=== PATIENT | female | born 1980 | race Caucasian/White ===

== ENCOUNTER → 2018-03-15 14:57 | Outpatient (CLI) | payer OTHER, SELFPAY ==
[2018-03-15 15:43] LABS: Influenza A and B by PCR Rapid Negative (Negative)
== END ==
PROVIDERS: PCP Family Medicine; Visit Provider Physician Assistant
DX: R68.89 Other general symptoms and signs (principal)
CPT/HCPCS: 87400

== ENCOUNTER → 2018-08-07 17:47 | Outpatient (CLI) | payer OTHER, SELFPAY ==
[2018-08-07 19:16] LABS: TSH w/ Reflex to FT4 6.52 uIU/mL (0.47-4.68)
[2018-08-07 19:42] LABS: Free T4, Direct Thyroxine 1.14 ng/dL (0.78-2.19)
== END ==
PROVIDERS: PCP Family Medicine; Visit Provider Family Medicine
DX: E03.9 Hypothyroidism, unspecified (principal)
CPT/HCPCS: 36415; 84439; 84443

== ENCOUNTER → 2018-12-18 13:55 | Outpatient (CLI) | payer OTHER, SELFPAY | PROVIDERS: PCP Family Medicine; Visit Provider Family Medicine | DX: E03.9 Hypothyroidism, unspecified (principal) | CPT/HCPCS: 36415; 84439; 84443 ==

== ENCOUNTER → 2019-07-17 07:08 | Outpatient (CLI) | payer OTHER, SELFPAY ==
[2019-07-17 09:51] LABS: Add Manual Diff / Slide Review NO; Basophils Absolute Auto 100 /uL (0-100); Eosinophils Absolute Auto 300 /uL (0-450); Eosinophils Percent Auto 4.8 % (2-4); Hematocrit 35.7 % (36-46); Hemoglobin 12.4 g/dL (12.0-16.0); Lymphocytes Absolute Auto 1700 /uL (1100-4500); Lymphocytes Percent Auto 25.7 % (25-40); Mean Corpuscular HGB Conc 34.7 % (30-36); Mean Corpuscular Hemoglobin 30.1 PG (26-34); Mean Corpuscular Volume 86.9 fL (80-100); Monocytes Absolute Auto 700 /uL (0-900); Monocytes Percent Auto 9.7 % (3-14); Neutrophils Absolute Auto 4000 /uL (1500-7000); Neutrophils Percent Auto 58.8 % (50-75); Platelet Count 231 X10^3/uL (150-400); Red Blood Cell Count 4.11 X10^6/uL (4.0-5.2); White Blood Cell Count 6.8 X10^3/uL (4.5-11.0)
[2019-07-17 09:59] LABS: Alanine Aminotransferase 14 IU/L (<35); Albumin 3.8 g/dL (3.5-5.0); Albumin Globulin Ratio 1.1 (1.0-2.8); Alkaline Phosphatase 55 U/L (38-126); Aspartate Aminotransferase 18 IU/L (14-36); BUN Creatinine Ratio 21.8 (6-22); Bilirubin Total 0.4 mg/dL (0.2-1.3); Blood Urea Nitrogen 17 mg/dL (7-17); Calcium 9.3 mg/dL (8.4-10.2); Carbon Dioxide 23 mmol/L (22-32); Chloride 107 mmol/L (98-107); Estimated Glomerular Filt Rate > 60.0 mL/min (>60); Globulin 3.4 g/dL (1.7-4.1); Glucose 98 mg/dL (70-100); HEMOLYSIS < 15 (0-50); Potassium 4.3 mmol/L (3.4-5.1); Sodium 135 mmol/L (137-145); Total Protein 7.2 g/dL (6.3-8.2)
== END ==
PROVIDERS: PCP Family Medicine; Referring Provider Family Medicine; Visit Provider Family Medicine
DX: Z13.0 Encounter for screening for diseases of the blood and blood-forming organs and certain disorders involving the immune mechanism (principal); Z13.1 Encounter for screening for diabetes mellitus; Z13.220 Encounter for screening for lipoid disorders
CPT/HCPCS: 36415; 80053; 85025

== ENCOUNTER → 2019-11-20 16:29 | Outpatient (CLI) | payer OTHER, SELFPAY ==
--- NOTE | 2019-11-20 16:30 | DI.RAD.S_ITS ---
PROCEDURE: XR SHOULDER RT MIN 2V INDICATIONS: right shoulder pain/injury TECHNIQUE: 3 views of the shoulder were acquired. COMPARISON: None. FINDINGS: Bones: Oblique clavicle fracture, with nondisplaced appearance. Soft tissues: No suspicious soft tissue calcifications. IMPRESSION: Nondisplaced right clavicle fracture Dictated by: Tino Roper M.D. on 11/21/2019 at 9:15 Approved by: Tino Roper M.D. on 11/21/2019 at 9:18
[2019-11-20 18:10] LABS: Thyroid Stimulating Hormone 6.07 uIU/mL (0.47-4.68)
== END ==
PROVIDERS: PCP Family Medicine; Referring Provider Family Medicine; Visit Provider Registered Nurse
DX: S49.91XA Unspecified injury of right shoulder and upper arm, initial encounter (principal); E03.9 Hypothyroidism, unspecified
CPT/HCPCS: 36415; 73030; 84443

== ENCOUNTER → 2020-01-06 16:35 | Outpatient (CLI) | payer OTHER, SELFPAY ==
--- NOTE | 2020-01-06 16:37 | DI.RAD.S_ITS ---
PROCEDURE: XR CERVICAL SPINE 2V OR 3V INDICATIONS: right arm numbness and pain TECHNIQUE: 3 view(s) of the cervical spine were acquired. COMPARISON: None. FINDINGS: Bones: No fractures or dislocations to the T1 level. The lateral masses of C1 appear intact on the odontoid view. No suspicious bony lesions. Minimal disc height reduction is present at C5-6. Soft tissues: No prevertebral soft tissue swelling. IMPRESSION: Minimal degenerative disc disease C5-6, no trauma found. MR scanning may be warranted given symptomatology reported. Dictated by: Ciro Seth M.D. on 01/06/2020 at 17:23 Approved by: Ciro Seth M.D. on 01/06/2020 at 17:23
== END ==
PROVIDERS: PCP Family Medicine; Referring Provider Family Medicine; Visit Provider Family Medicine
DX: M79.601 Pain in right arm (principal); R20.0 Anesthesia of skin
CPT/HCPCS: 72040

== ENCOUNTER → 2020-06-23 11:15 | Outpatient (CLI) | payer OTHER, SELFPAY ==
[2020-06-23 13:12] LABS: COVID19 -Nasal RAPID Negative (Negative)
== END ==
PROVIDERS: PCP Family Medicine; Visit Provider Student in an Organized Health Care Education/Training Program
DX: R05 Cough (principal); R10.9 Unspecified abdominal pain; Z20.822 Contact with and (suspected) exposure to COVID-19
CPT/HCPCS: 87635

== ENCOUNTER 2020-06-25 14:07 | Emergency (ER) | payer OTHER, SELFPAY ==
[2020-06-25] VITALS (14 sets, daily range): BP systolic 130–180; BP diastolic 65–84; PULSE 96–114; RESP 16–33; TEMP 37.4; O2SAT 94–100; BMI 44.3
[2020-06-25] MEDS: SODIUM CHLORIDE 0.9% 1,000 ML 1000 ML IV ×2 (15:34→19:51)
[2020-06-25] MEDS: ONDANSETRON 4 MG/2 ML INJ IV (15:34)
--- NOTE | 2020-06-25 15:52 | DI.RAD.S_ITS ---
PROCEDURE: XR CHEST 1V INDICATIONS: shortness of breath TECHNIQUE: One view of the chest was acquired. COMPARISON: None. FINDINGS: Surgical changes and devices: None. Lungs and pleura: An incomplete inspiratory result is noted, causing a crowded appearance to the lung markings. No focal infiltrates are seen. No pneumothorax or significant pleural effusions are seen. Mediastinum: Mediastinal contours appear normal. Heart size is normal. Bones and chest wall: No suspicious bony lesions. Overlying soft tissues appear unremarkable. IMPRESSION: Limited portable chest examination, without a significant cardiopulmonary abnormality identified. Dictated by: Antony Campos M.D. on 06/25/2020 at 15:13 Approved by: Antony Campos M.D. on 06/25/2020 at 15:14
--- NOTE | 2020-06-25 15:56 | ED.ABDPAIN ---
HPI - Abdominal Pain <Sun Goins DO - Last Filed: 06/26/20 16:47> General Chief Complaint: Abdominal Pain Stated Complaint: upper GI sx, SOB, can't keep anything down Time Seen by Provider: 06/25/20 15:43 Source: patient Mode of arrival: Ambulatory Limitations: no limitations History of Present Illness HPI narrative: The patient is a 39-year-old female history of CVA at the age of 14 who presents with a variety of symptoms including shortness of breath, nausea vomiting, diarrhea ongoing for the last 2-3 days. She says that she has had headache and body aches as well she was tested for COVID yesterday and it was negative. She now is no longer having diarrhea but having some mild abdominal discomfort in his persistently nauseous vomiting. She describes her shortness of breath worse with exertion. She is also having orthopnea but denies any peripheral edema. MD complaint: abdominal pain Onset (ago): day(s) Location: diffuse Quality: cramping Radiation: none Migration to: no migration Related Data Previous Rx's Medication Instructions Recorded meloxicam 7.5 mg tablet 7.5 mg PO DAILY #30 tab 01/07/20 gabapentin 300 mg capsule 300 mg PO BEDTIME #30 cap 01/13/20 levothyroxine 175 mcg capsule 175 mcg PO DAILY #30 cap 02/18/20 pregabalin 100 mg capsule 100 mg PO BEDTIME #30 cap 02/19/20 ondansetron 4 mg disintegrating 4 mg PO Q6H PRN #20 tab 06/24/20 tablet Allergies Allergy/AdvReac Type Severity Reaction Status Date / Time amoxicillin Allergy Verified 06/25/20 14:41 Review of Systems <DO Troy Baptiste Last Filed: 06/26/20 16:47> Review of Systems ROS Unobtainable: All systems reviewed & are unremarkable except as noted in HPI and below Constitutional Constitutional: Reports body ache(s), Denies chills, Reports fatigue, Denies fever(s), Denies headache(s), Denies lethargy and Reports weakness ENT Ears, Nose, Mouth, and Throat: Denies vertigo, Denies dizziness and Denies headache(s) Cardiovascular Cardiovascular: Denies chest pain, Reports dyspnea, Reports dyspnea on exertion and Reports orthopnea Respiratory Respiratory: Denies cough, Reports dyspnea and Reports dyspnea on exertion Gastrointestinal Gastrointestinal: Reports as per HPI, Reports abdominal pain, Denies change in bowel habits, Reports diarrhea, Reports nausea and Reports vomiting Genitourinary Genitourinary: Denies urinary hesitancy and Denies urinary incontinence Genitourinary: Denies urinary incontinence and Denies urinary hesitancy Musculoskeletal Musculoskeletal: Denies back pain and Denies myalgias Integumentary/Breasts Skin/Breast: Denies pruritus, Denies erythema, Denies rash and Denies wounds Neurologic Neurologic: Denies vertigo, Denies dizziness, Denies headache(s) and Reports weakness Endocrine Endocrine: Reports fatigue Patient History <Sun Goins DO - Last Filed: 06/26/20 16:47> Medical History CVA (cerebral vascular accident) Social History marital status: unmarried,single Smoking Status: Never smoker alcohol intake: current (1-3 A WEEK ) substance use type: does not use Smoking Status: Never smoker Exam <Sun Goins DO - Last Filed: 06/26/20 16:47> Initial Vital Signs Initial Vital Signs: Vital Signs Temperature 99.3 F 06/25/20 14:35 Pulse Rate 103 H 06/25/20 14:35 Respiratory Rate 16 06/25/20 14:35 Blood Pressure 180/84 H 06/25/20 14:35 Pulse Oximetry 98 06/25/20 14:35 GENERAL: Alert 39-year-old female BMI 44 HEENT: Head atraumatic,EOMI, pupils reactive, face symmetric, moist mucous membranes CARDIOVASCULAR: Regular rate and rhythm without murmurs, rubs or gallops. RESPIRATORY: Breath sounds equal bilaterally, no wheezes rales or rhonchi. ABDOMEN: Soft, mild left lower quadrant tenderness no guarding no rebound EXTREMITIES: Normal range of motion, no clubbing or edema. Neurovascularly intact NEUROLOGICAL: Alert and oriented x4.Normal gait and speech. SKIN: Warm, dry, no laceration, no petechiae, no rashes or lesions. <Pratima Louis MD - Last Filed: 06/25/20 23:25> Initial Vital Signs Initial Vital Signs: Vital Signs Temperature 99.3 F 06/25/20 14:35 Pulse Rate 103 H 06/25/20 14:35 Respiratory Rate 16 06/25/20 14:35 Blood Pressure 180/84 H 06/25/20 14:35 Pulse Oximetry 98 06/25/20 14:35 Course <Sun Goins, - Last Filed: 06/26/20 16:47> Orders Ordered: Discontinued Medications Allopurinol (Allopurinol 300 Mg Tablet) 300 mg PO NOW ONE Stop: 06/25/20 19:06 Last Admin: 06/25/20 22:42 Dose: 300 mg Documented by: AYAH Hydroxyurea (Hydroxyurea 500 Mg Capsule) 3,000 mg PO NOW ONE Stop: 06/25/20 19:06 Last Admin: 06/25/20 22:42 Dose: 3,000 mg Documented by: AYAH Sodium Chloride (Normal Saline 0.9%) 1,000 mls @ 1,000 mls/hr IV BOLUS ONE Stop: 06/25/20 16:24 Last Infusion: 06/25/20 19:04 Dose: 0 mls/hr Documented by: Admin: 06/25/20 15:34 Dose: 1,000 mls/hr Documented by: STEPHANIE Sodium Chloride (Normal Saline 0.9%) 1,000 mls @ 1,000 mls/hr IV BOLUS ONE Stop: 06/25/20 20:49 Last Infusion: 06/25/20 23:33 Dose: 0 mls/hr Documented by: Admin: 06/25/20 19:51 Dose: 1,000 mls/hr Documented by: AYAH Lorazepam (Lorazepam 2 Mg/Ml Inj) 1 mg IV NOW ONE Stop: 06/25/20 22:15 Last Admin: 06/25/20 22:20 Dose: 1 mg Documented by: AYAH Metoclopramide HCl (Metoclopramide 10 Mg/2 Ml Inj) 10 mg IV NOW ONE Stop: 06/25/20 19:11 Last Admin: 06/25/20 19:16 Dose: 10 mg Documented by: STEPHANIE Morphine Sulfate (Morphine 2 Mg/Ml Inj) 2 mg IV NOW ONE Stop: 06/25/20 16:52 Last Admin: 06/25/20 16:54 Dose: 2 mg Documented by: STEPHANIE Ondansetron HCl (Ondansetron 4 Mg/2 Ml Inj) 4 mg IV NOW ONE Stop: 06/25/20 15:22 Last Admin: 06/25/20 15:34 Dose: 4 mg Documented by: STEPHANIE Pantoprazole Sodium (Pantoprazole 40 Mg Vial) 40 mg IV NOW ONE Stop: 06/25/20 17:01 Last Admin: 06/25/20 17:01 Dose: 40 mg Documented by: STEPHANIE Prochlorperazine (Prochlorperazine 10 Mg/2 Ml Vial) 10 mg IV NOW ONE Stop: 06/25/20 19:44 Last Admin: 06/25/20 19:45 Dose: 10 mg Documented by: AYAH Prochlorperazine (Prochlorperazine 10 Mg/2 Ml Vial) 5 mg IV NOW ONE Stop: 06/25/20 22:15 Last Admin: 06/25/20 22:20 Dose: 5 mg Documented by: AYAH Vital Signs Vital signs: Vital Signs - 8 hr 06/25/20 15:44 06/25/20 15:47 06/25/20 16:00 Pulse Rate 103 H 108 H 114 H Respiratory Rate 22 23 Blood Pressure 137/72 132/65 Pulse Oximetry 94 98 99 06/25/20 16:30 06/25/20 17:00 06/25/20 17:30 Pulse Rate 107 H 103 H 99 H Respiratory Rate 26 H 20 33 H Blood Pressure 137/80 138/70 Pulse Oximetry 97 96 100 06/25/20 18:00 06/25/20 18:09 06/25/20 18:11 Pulse Rate 96 H 99 H 102 H Respiratory Rate 33 H 24 18 Blood Pressure 150/75 H 150/75 H Pulse Oximetry 97 98 97 06/25/20 18:30 06/25/20 19:00 06/25/20 19:11 Pulse Rate 96 H 101 H 99 H Respiratory Rate 22 22 24 Blood Pressure 149/67 H Pulse Oximetry 99 99 99 <Pratima Louis MD - Last Filed: 06/25/20 23:25> Orders Ordered: Discontinued Medications Allopurinol (Allopurinol 300 Mg Tablet) 300 mg PO NOW ONE Stop: 06/25/20 19:06 Last Admin: 06/25/20 22:42 Dose: 300 mg Documented by: AYAH Hydroxyurea (Hydroxyurea 500 Mg Capsule) 3,000 mg PO NOW ONE Stop: 06/25/20 19:06 Last Admin: 06/25/20 22:42 Dose: 3,000 mg Documented by: AYAH Sodium Chloride (Normal Saline 0.9%) 1,000 mls @ 1,000 mls/hr IV BOLUS ONE Stop: 06/25/20 16:24 Last Infusion: 06/25/20 19:04 Dose: 0 mls/hr Documented by: Admin: 06/25/20 15:34 Dose: 1,000 mls/hr Documented by: STEPHANIE Sodium Chloride (Normal Saline 0.9%) 1,000 mls @ 1,000 mls/hr IV BOLUS ONE Stop: 06/25/20 20:49 Last Infusion: 06/25/20 23:33 Dose: 0 mls/hr Documented by: Admin: 06/25/20 19:51 Dose: 1,000 mls/hr Documented by: AYAH Lorazepam (Lorazepam 2 Mg/Ml Inj) 1 mg IV NOW ONE Stop: 06/25/20 22:15 Last Admin: 06/25/20 22:20 Dose: 1 mg Documented by: AYAH Metoclopramide HCl (Metoclopramide 10 Mg/2 Ml Inj) 10 mg IV NOW ONE Stop: 06/25/20 19:11 Last Admin: 06/25/20 19:16 Dose: 10 mg Documented by: STEPHANIE Morphine Sulfate (Morphine 2 Mg/Ml Inj) 2 mg IV NOW ONE Stop: 06/25/20 16:52 Last Admin: 06/25/20 16:54 Dose: 2 mg Documented by: STEPHANIE Ondansetron HCl (Ondansetron 4 Mg/2 Ml Inj) 4 mg IV NOW ONE Stop: 06/25/20 15:22 Last Admin: 06/25/20 15:34 Dose: 4 mg Documented by: STEPHANIE Pantoprazole Sodium (Pantoprazole 40 Mg Vial) 40 mg IV NOW ONE Stop: 06/25/20 17:01 Last Admin: 06/25/20 17:01 Dose: 40 mg Documented by: STEPHANIE Prochlorperazine (Prochlorperazine 10 Mg/2 Ml Vial) 10 mg IV NOW ONE Stop: 06/25/20 19:44 Last Admin: 06/25/20 19:45 Dose: 10 mg Documented by: AYAH Prochlorperazine (Prochlorperazine 10 Mg/2 Ml Vial) 5 mg IV NOW ONE Stop: 06/25/20 22:15 Last Admin: 06/25/20 22:20 Dose: 5 mg Documented by: AYAH Vital Signs Vital signs: Vital Signs - 8 hr 06/25/20 15:44 06/25/20 15:47 06/25/20 16:00 Pulse Rate 103 H 108 H 114 H Respiratory Rate 22 23 Blood Pressure 137/72 132/65 Pulse Oximetry 94 98 99 06/25/20 16:30 06/25/20 17:00 06/25/20 17:30 Pulse Rate 107 H 103 H 99 H Respiratory Rate 26 H 20 33 H Blood Pressure 137/80 138/70 Pulse Oximetry 97 96 100 06/25/20 18:00 06/25/20 18:09 06/25/20 18:11 Pulse Rate 96 H 99 H 102 H Respiratory Rate 33 H 24 18 Blood Pressure 150/75 H 150/75 H Pulse Oximetry 97 98 97 06/25/20 18:30 06/25/20 19:00 06/25/20 19:11 Pulse Rate 96 H 101 H 99 H Respiratory Rate 22 22 24 Blood Pressure 149/67 H Pulse Oximetry 99 99 99 MDM - Abdominal Pain <Sun Goins DO - Last Filed: 06/26/20 16:47> Lab Data Attestation: I reviewed the patient's lab results. Result diagrams: 06/25/20 15:40 06/25/20 15:40 Labs: Lab Results 06/25/20 06/25/20 06/25/20 Range/Units 15:40 15:40 15:40 WBC 79.0 H* (4.5-11.0) X10^3/uL RBC 2.10 L (4.0-5.2) X10^6/uL Hgb 7.2 L (12.0-16.0) g/dL Hct 21.8 L (36-46) % MCV 104.1 H (80-100) fL MCH 34.3 H (26-34) PG MCHC 32.9 (30-36) % RDW 18.0 H (11.6-14.8) % Plt Count 60 L (150-400) X10^3/uL Neut % (Auto) Not Reportable Lymph % (Auto) Not Reportable [place] % (Auto) Not Reportable Eos % (Auto) Not Reportable Baso % (Auto) Not Reportable Lymph # (Auto) Not Reportable [place] # (Auto) Not Reportable Baso # (Auto) Not Reportable Total Counted 100 Seg Neutrophils % 9.0 L (38-70) % Band Neutrophils % 5.0 (3-7) % Lymphocytes % (Manual) 10.0 L (25-45) % Monocytes % (Manual) 10.0 (2-11) % Metamyelocytes % 4.0 H (-0) % Myelocytes % 3.0 H (-0) % Promyelocytes % 2.0 H (-0) % Blast Cells % 57.0 H (-0) % Neutrophils # (Manual) 35019 H (5239-6931) /uL Nucleated RBCs 4 H ( - 0) #/Diff Ky Rods Rare WBC Morphology Comment RBC Morphology Not Reportable Anisocytosis 2+ H Macrocytosis 1+ H PT 16.0 H (10.1-12.7) SECONDS INR 1.4 H (0.9-1.3) APTT 32 (26.4-36.2) SECONDS Fibrinogen (211-428) mg/dL D-Dimer (<230) ng/mL Sodium 135 L (137-145) mmol/L Potassium 3.3 L (3.4-5.1) mmol/L Chloride 105 (98-107) mmol/L Carbon Dioxide 23 (22-32) mmol/L BUN 6 L (7-17) mg/dL Creatinine 0.81 (0.52-1.04) mg/dL Estimated GFR > 60.0 (>60) mL/min BUN/Creatinine Ratio 7.4 (6-22) Glucose 111 H (70-100) mg/dL Uric Acid (2.5-6.2) mg/dL Calcium 8.7 (8.4-10.2) mg/dL Phosphorus (2.5-4.5) mg/dL Total Bilirubin 0.4 (0.2-1.3) mg/dL AST 68 H (14-36) IU/L ALT 62 H (<35) IU/L Alkaline Phosphatase 98 (38-126) U/L Lactate Dehydrogenase (313-618) U/L Total Creatine Kinase (30-135) U/L CK-MB (CK-2) CK-MB (CK-2) Rel Index Troponin I (0.01-0.034) ng/mL NT-Pro-B Natriuret Pep (<125) pg/mL Total Protein 7.0 (6.3-8.2) g/dL Albumin 3.8 (3.5-5.0) g/dL Globulin 3.2 (1.7-4.1) g/dL Albumin/Globulin Ratio 1.2 (1.0-2.8) Lipase 44 (23-300) U/L SARS-CoV-2 (PCR) (Negative) 06/25/20 06/25/20 06/25/20 Range/Units 15:40 15:40 16:30 WBC (4.5-11.0) X10^3/uL RBC (4.0-5.2) X10^6/uL Hgb (12.0-16.0) g/dL Hct (36-46) % MCV (80-100) fL MCH (26-34) PG MCHC (30-36) % RDW (11.6-14.8) % Plt Count (150-400) X10^3/uL Neut % (Auto) Lymph % (Auto) [place] % (Auto) Eos % (Auto) Baso % (Auto) Lymph # (Auto) [place] # (Auto) Baso # (Auto) Total Counted Seg Neutrophils % (38-70) % Band Neutrophils % (3-7) % Lymphocytes % (Manual) (25-45) % Monocytes % (Manual) (2-11) % Metamyelocytes % (-0) % Myelocytes % (-0) % Promyelocytes % (-0) % Blast Cells % (-0) % Neutrophils # (Manual) (5168-9344) /uL Nucleated RBCs ( - 0) #/Diff Ky Rods WBC Morphology Comment RBC Morphology Anisocytosis Macrocytosis PT (10.1-12.7) SECONDS INR (0.9-1.3) APTT (26.4-36.2) SECONDS Fibrinogen (211-428) mg/dL D-Dimer 8178 H (<230) ng/mL Sodium (137-145) mmol/L Potassium (3.4-5.1) mmol/L Chloride (98-107) mmol/L Carbon Dioxide (22-32) mmol/L BUN (7-17) mg/dL Creatinine (0.52-1.04) mg/dL Estimated GFR (>60) mL/min BUN/Creatinine Ratio (6-22) Glucose (70-100) mg/dL Uric Acid (2.5-6.2) mg/dL Calcium (8.4-10.2) mg/dL Phosphorus (2.5-4.5) mg/dL Total Bilirubin (0.2-1.3) mg/dL AST (14-36) IU/L ALT (<35) IU/L Alkaline Phosphatase (38-126) U/L Lactate Dehydrogenase (313-618) U/L Total Creatine Kinase 54 (30-135) U/L CK-MB (CK-2) TNP CK-MB (CK-2) Rel Index TNP Troponin I < 0.012 (0.01-0.034) ng/mL NT-Pro-B Natriuret Pep 376 H (<125) pg/mL Total Protein (6.3-8.2) g/dL Albumin (3.5-5.0) g/dL Globulin (1.7-4.1) g/dL Albumin/Globulin Ratio (1.0-2.8) Lipase (23-300) U/L SARS-CoV-2 (PCR) Negative (Negative) 06/25/20 06/25/20 06/25/20 Range/Units 19:05 19:07 19:07 WBC (4.5-11.0) X10^3/uL RBC (4.0-5.2) X10^6/uL Hgb (12.0-16.0) g/dL Hct (36-46) % MCV (80-100) fL MCH (26-34) PG MCHC (30-36) % RDW (11.6-14.8) % Plt Count (150-400) X10^3/uL Neut % (Auto) Lymph % (Auto) [place] % (Auto) Eos % (Auto) Baso % (Auto) Lymph # (Auto) [place] # (Auto) Baso # (Auto) Total Counted Seg Neutrophils % (38-70) % Band Neutrophils % (3-7) % Lymphocytes % (Manual) (25-45) % Monocytes % (Manual) (2-11) % Metamyelocytes % (-0) % Myelocytes % (-0) % Promyelocytes % (-0) % Blast Cells % (-0) % Neutrophils # (Manual) (9292-2073) /uL Nucleated RBCs ( - 0) #/Diff Ky Rods WBC Morphology Comment RBC Morphology Anisocytosis Macrocytosis PT (10.1-12.7) SECONDS INR (0.9-1.3) APTT (26.4-36.2) SECONDS Fibrinogen 162 L (211-428) mg/dL D-Dimer (<230) ng/mL Sodium (137-145) mmol/L Potassium (3.4-5.1) mmol/L Chloride (98-107) mmol/L Carbon Dioxide (22-32) mmol/L BUN (7-17) mg/dL Creatinine (0.52-1.04) mg/dL Estimated GFR (>60) mL/min BUN/Creatinine Ratio (6-22) Glucose (70-100) mg/dL Uric Acid 6.8 H (2.5-6.2) mg/dL Calcium (8.4-10.2) mg/dL Phosphorus 1.2 L (2.5-4.5) mg/dL Total Bilirubin (0.2-1.3) mg/dL AST (14-36) IU/L ALT (<35) IU/L Alkaline Phosphatase (38-126) U/L Lactate Dehydrogenase 4053 H (313-618) U/L Total Creatine Kinase (30-135) U/L CK-MB (CK-2) CK-MB (CK-2) Rel Index Troponin I (0.01-0.034) ng/mL NT-Pro-B Natriuret Pep (<125) pg/mL Total Protein (6.3-8.2) g/dL Albumin (3.5-5.0) g/dL Globulin (1.7-4.1) g/dL Albumin/Globulin Ratio (1.0-2.8) Lipase (23-300) U/L SARS-CoV-2 (PCR) (Negative) Point of care testing: Point of Care Testing Test Results Negative Urine Dip Bedside Urine Glucose Negative Bedside Urine Bilirubin - Negative Bedside Urine Ketone +/- 5 Urine Specific [place] 1.025 Bedside Urine Occult Blood +++ Bedside Urine pH 5.5 Bedside Urine Protein + 30 Bedside Urine Urobilinogen +/- 1mg Bedside Urine Leukocytes - Negative Esterase Imaging Data Chest x-ray: Radiologist's Impression: PROCEDURE: XR CHEST 1V INDICATIONS: shortness of breath TECHNIQUE: One view of the chest was acquired. COMPARISON: None. FINDINGS: Surgical changes and devices: None. Lungs and pleura: An incomplete inspiratory result is noted, causing a crowded appearance to the lung markings. No focal infiltrates are seen. No pneumothorax or significant pleural effusions are seen. Mediastinum: Mediastinal contours appear normal. Heart size is normal. Bones and chest wall: No suspicious bony lesions. Overlying soft tissues appear unremarkable. IMPRESSION: Limited portable chest examination, without a significant cardiopulmonary abnormality identified. Dictated by: Antony Campos M.D. on 06/25/2020 at 15:13 CT scan - abdomen/pelvis: Radiologist's Impression: PROCEDURE: CT ABDOMEN PELVIS W CON INDICATIONS: ab pain nausea very high wbc TECHNIQUE: After the administration of oral and intravenous contrast, 5 mm thick sections acquired from the diaphragms to the symphysis. 5 mm thick coronal and sagittal reformats were performed. For radiation dose reduction, the following was used: automated exposure control, adjustment of mA and/or kV according to patient size. COMPARISON: [facility], CT, CT ANGIO CHEST PE PROTOCOL, 06/25/2020, 17:06. FINDINGS: Image quality: Excellent. ABDOMEN: Lung bases: Please see separately dictated same day CT pulmonary angiogram. No pleural effusion. Patchy airspace opacity at the lung bases seen. Solid organs: Liver is normal in size and enhancement. Gallbladder is prominent size. Small layering calcified gallstones are seen. No pericholecystic fluid. Biliary system is non-dilated. Pancreas enhances normally. Spleen is enlarged measuring approximately 16.3 cm in craniocaudal dimension, (). Trace stranding near the spleen. No adrenal nodules. Kidneys are normal in size and enhancement, without hydronephrosis. Peritoneum and bowel: Stomach, small bowel, and colon loops are normal in caliber and wall thickness. A few colonic diverticuli. Normal appendix. No free fluid or air. Nodes and vessels: No retroperitoneal or mesenteric adenopathy. Aorta and inferior vena cava are normal in caliber. Miscellaneous: Small fat containing periumbilical hernia. PELVIS: Genitourinary: Bladder is decompressed. Left ovarian cyst measuring 2 cm. Small volume of free fluid in the pelvis. IUD centered in the uterus. Anteverted uterus. Miscellaneous: No inguinal hernias or adenopathy. Bones: No suspicious bony lesions. No vertebral body compression fractures. IMPRESSION: 1. Splenomegaly. Trace stranding near the spleen. This could be seen in infectious/inflammatory etiology. Neoplastic process as a source of splenomegaly and leukocytosis could have a similar appearance. 2. Small volume of free fluid in the pelvis. This could be within physiologic limits in this female patient. 3. Cholelithiasis. -If concern for acute cholecystitis consider gallbladder ultrasound. 4. Small left ovarian cyst. Dictated by: Temo Talbot M.D. on 06/25/2020 at 17:45 CT scan - chest: Radiologist's Impression: PROCEDURE: CT ANGIO CHEST PE PROTOCOL INDICATIONS: sob very high dimer TECHNIQUE: After the administration of intravenous contrast, 2 mm thick sections acquired from the pulmonary apices to the posterior costophrenic angles. 3-dimensional maximum intensity projection (MIP) coronal and sagittal reformats were then acquired through the thorax. For radiation dose reduction, the following was used: automated exposure control, adjustment of mA and/or kV according to patient size. COMPARISON: [facility], CR, XR CHEST 1V, 06/25/2020, 15:57. [facility], CT, CT ABDOMEN PELVIS W CON, 06/25/2020, 17:06. FINDINGS: Image quality: Fair. Pulmonary arteries: Pulmonary arteries are normal in size, and demonstrate no intraluminal filling defects to suggest central pulmonary embolism. Lungs and pleura: Right middle lobe pulmonary nodule measuring 1 x 0.8 cm, (5/131). Bilateral a patchy ground-glass opacity, [id number] severity. No pleural effusions or pneumothorax. Central and peripheral airways are patent. Mediastinum: Heart size is normal, without pericardial effusion. No mediastinal or hilar adenopathy. Nodes are shotty in appearance. Favor reactive etiology. Thoracic aorta is normal in caliber and enhancement. Esophagus is normal in caliber, without hiatal hernia. Bones and chest wall: No suspicious bony lesions. Ribs and thoracic spine appear intact throughout. Thyroid gland is unremarkable. No axillary or supraclavicular adenopathy. Abdomen: Visualized upper abdominal solid organs appear normal in the early arterial phase of enhancement. IMPRESSION: 1. No central pulmonary embolism. 2. Bilateral patchy ground-glass opacity. Findings most compatible with infectious/inflammatory etiology. COVID-19 could have this appearance. 3. Right middle lobe pulmonary nodule measuring up to 1 cm. -This could be further evaluated with PET/CT after resolution of acute inflammation/infectious process. -A short-term follow-up CT chest is also recommended to demonstrate stability. Dictated by: Temo Talbot M.D. on 06/25/2020 at 17:36 ECG Data Attestation: I personally reviewed and interpreted this ECG as follows: Interpretation: Normal sinus rhythm rate 103 p.r. interval 142 QRS [address] changes MDM Narrative Medical decision making narrative: Patient is found to have severe leukocytosis with 79,000 any Rebekah 7.2 and thrombocytopenia of 60,000. 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 She is even found to have our rods in her differential along with with splenomegaly. Concern for acute a blast crisis. 1930-Dr. Cintron at [facility] updated patient's symptoms test results. At this time requests further lab studies fibrinogen uric acid LDH and phosphate. Also request allopurinol 300 mg plus hydroxyurea 3 g x 1. She happily accepts patient for transfer. Signed out to Dr. Christianson <Pratima Louis MD - Last Filed: 06/25/20 23:25> Medical Records Attestation: I reviewed the patient's medical records. Lab Data Attestation: I reviewed the patient's lab results. Labs: Lab Results 06/25/20 06/25/20 06/25/20 Range/Units 15:40 15:40 15:40 WBC 79.0 H* (4.5-11.0) X10^3/uL RBC 2.10 L (4.0-5.2) X10^6/uL Hgb 7.2 L (12.0-16.0) g/dL Hct 21.8 L (36-46) % MCV 104.1 H (80-100) fL MCH 34.3 H (26-34) PG MCHC 32.9 (30-36) % RDW 18.0 H (11.6-14.8) % Plt Count 60 L (150-400) X10^3/uL Neut % (Auto) Not Reportable Lymph % (Auto) Not Reportable [place] % (Auto) Not Reportable Eos % (Auto) Not Reportable Baso % (Auto) Not Reportable Lymph # (Auto) Not Reportable [place] # (Auto) Not Reportable Baso # (Auto) Not Reportable Total Counted 100 Seg Neutrophils % 9.0 L (38-70) % Band Neutrophils % 5.0 (3-7) % Lymphocytes % (Manual) 10.0 L (25-45) % Monocytes % (Manual) 10.0 (2-11) % Metamyelocytes % 4.0 H (-0) % Myelocytes % 3.0 H (-0) % Promyelocytes % 2.0 H (-0) % Blast Cells % 57.0 H (-0) % Neutrophils # (Manual) 83000 H (8254-0449) /uL Nucleated RBCs 4 H ( - 0) #/Diff Ky Rods Rare WBC Morphology Comment RBC Morphology Not Reportable Anisocytosis 2+ H Macrocytosis 1+ H PT 16.0 H (10.1-12.7) SECONDS INR 1.4 H (0.9-1.3) APTT 32 (26.4-36.2) SECONDS Fibrinogen (211-428) mg/dL D-Dimer (<230) ng/mL Sodium 135 L (137-145) mmol/L Potassium 3.3 L (3.4-5.1) mmol/L Chloride 105 (98-107) mmol/L Carbon Dioxide 23 (22-32) mmol/L BUN 6 L (7-17) mg/dL Creatinine 0.81 (0.52-1.04) mg/dL Estimated GFR > 60.0 (>60) mL/min BUN/Creatinine Ratio 7.4 (6-22) Glucose 111 H (70-100) mg/dL Uric Acid (2.5-6.2) mg/dL Calcium 8.7 (8.4-10.2) mg/dL Phosphorus (2.5-4.5) mg/dL Total Bilirubin 0.4 (0.2-1.3) mg/dL AST 68 H (14-36) IU/L ALT 62 H (<35) IU/L Alkaline Phosphatase 98 (38-126) U/L Lactate Dehydrogenase (313-618) U/L Total Creatine Kinase (30-135) U/L CK-MB (CK-2) CK-MB (CK-2) Rel Index Troponin I (0.01-0.034) ng/mL NT-Pro-B Natriuret Pep (<125) pg/mL Total Protein 7.0 (6.3-8.2) g/dL Albumin 3.8 (3.5-5.0) g/dL Globulin 3.2 (1.7-4.1) g/dL Albumin/Globulin Ratio 1.2 (1.0-2.8) Lipase 44 (23-300) U/L SARS-CoV-2 (PCR) (Negative) 06/25/20 06/25/20 06/25/20 Range/Units 15:40 15:40 16:30 WBC (4.5-11.0) X10^3/uL RBC (4.0-5.2) X10^6/uL Hgb (12.0-16.0) g/dL Hct (36-46) % MCV (80-100) fL MCH (26-34) PG MCHC (30-36) % RDW (11.6-14.8) % Plt Count (150-400) X10^3/uL Neut % (Auto) Lymph % (Auto) [place] % (Auto) Eos % (Auto) Baso % (Auto) Lymph # (Auto) [place] # (Auto) Baso # (Auto) Total Counted Seg Neutrophils % (38-70) % Band Neutrophils % (3-7) % Lymphocytes % (Manual) (25-45) % Monocytes % (Manual) (2-11) % Metamyelocytes % (-0) % Myelocytes % (-0) % Promyelocytes % (-0) % Blast Cells % (-0) % Neutrophils # (Manual) (2236-9686) /uL Nucleated RBCs ( - 0) #/Diff Ky Rods WBC Morphology Comment RBC Morphology Anisocytosis Macrocytosis PT (10.1-12.7) SECONDS INR (0.9-1.3) APTT (26.4-36.2) SECONDS Fibrinogen (211-428) mg/dL D-Dimer 8178 H (<230) ng/mL Sodium (137-145) mmol/L Potassium (3.4-5.1) mmol/L Chloride (98-107) mmol/L Carbon Dioxide (22-32) mmol/L BUN (7-17) mg/dL Creatinine (0.52-1.04) mg/dL Estimated GFR (>60) mL/min BUN/Creatinine Ratio (6-22) Glucose (70-100) mg/dL Uric Acid (2.5-6.2) mg/dL Calcium (8.4-10.2) mg/dL Phosphorus (2.5-4.5) mg/dL Total Bilirubin (0.2-1.3) mg/dL AST (14-36) IU/L ALT (<35) IU/L Alkaline Phosphatase (38-126) U/L Lactate Dehydrogenase (313-618) U/L Total Creatine Kinase 54 (30-135) U/L CK-MB (CK-2) TNP CK-MB (CK-2) Rel Index TNP Troponin I < 0.012 (0.01-0.034) ng/mL NT-Pro-B Natriuret Pep 376 H (<125) pg/mL Total Protein (6.3-8.2) g/dL Albumin (3.5-5.0) g/dL Globulin (1.7-4.1) g/dL Albumin/Globulin Ratio (1.0-2.8) Lipase (23-300) U/L SARS-CoV-2 (PCR) Negative (Negative) 06/25/20 06/25/20 06/25/20 Range/Units 19:05 19:07 19:07 WBC (4.5-11.0) X10^3/uL RBC (4.0-5.2) X10^6/uL Hgb (12.0-16.0) g/dL Hct (36-46) % MCV (80-100) fL MCH (26-34) PG MCHC (30-36) % RDW (11.6-14.8) % Plt Count (150-400) X10^3/uL Neut % (Auto) Lymph % (Auto) [place] % (Auto) Eos % (Auto) Baso % (Auto) Lymph # (Auto) [place] # (Auto) Baso # (Auto) Total Counted Seg Neutrophils % (38-70) % Band Neutrophils % (3-7) % Lymphocytes % (Manual) (25-45) % Monocytes % (Manual) (2-11) % Metamyelocytes % (-0) % Myelocytes % (-0) % Promyelocytes % (-0) % Blast Cells % (-0) % Neutrophils # (Manual) (1029-6182) /uL Nucleated RBCs ( - 0) #/Diff Ky Rods WBC Morphology Comment RBC Morphology Anisocytosis Macrocytosis PT (10.1-12.7) SECONDS INR (0.9-1.3) APTT (26.4-36.2) SECONDS Fibrinogen 162 L (211-428) mg/dL D-Dimer (<230) ng/mL Sodium (137-145) mmol/L Potassium (3.4-5.1) mmol/L Chloride (98-107) mmol/L Carbon Dioxide (22-32) mmol/L BUN (7-17) mg/dL Creatinine (0.52-1.04) mg/dL Estimated GFR (>60) mL/min BUN/Creatinine Ratio (6-22) Glucose (70-100) mg/dL Uric Acid 6.8 H (2.5-6.2) mg/dL Calcium (8.4-10.2) mg/dL Phosphorus 1.2 L (2.5-4.5) mg/dL Total Bilirubin (0.2-1.3) mg/dL AST (14-36) IU/L ALT (<35) IU/L Alkaline Phosphatase (38-126) U/L Lactate Dehydrogenase 4053 H (313-618) U/L Total Creatine Kinase (30-135) U/L CK-MB (CK-2) CK-MB (CK-2) Rel Index Troponin I (0.01-0.034) ng/mL NT-Pro-B Natriuret Pep (<125) pg/mL Total Protein (6.3-8.2) g/dL Albumin (3.5-5.0) g/dL Globulin (1.7-4.1) g/dL Albumin/Globulin Ratio (1.0-2.8) Lipase (23-300) U/L SARS-CoV-2 (PCR) (Negative) Point of care testing: Point of Care Testing Test Results Negative Urine Dip Bedside Urine Glucose Negative Bedside Urine Bilirubin - Negative Bedside Urine Ketone +/- 5 Urine Specific [place] 1.025 Bedside Urine Occult Blood +++ Bedside Urine pH 5.5 Bedside Urine Protein + 30 Bedside Urine Urobilinogen +/- 1mg Bedside Urine Leukocytes - Negative Esterase MDM Narrative Medical decision making narrative: 913pm [place] doctor, Dr Lara, due to insurance, she would prefer either [facility] or [facility] in [place] . She has reveiwed notes from provider at and will see what availability there is. Patient would like to be able to have her drive her down and given her relative clinical stability at this time I think that is very reasonable. Dr. Lara will contact us with bed availability 930pm patient is adamantly declining the allopurinol and hydroxyurea recommended by the doctor at the [facility]. 10pm Dr Eckert. Reviewed labs, low fibrinogen. Atra Altrans Retinoic Acid 45mg/m sq daily. 22.5mg/ meter squared BID. 175 cm, 136 kilos equals a meter per squared of 2.5. Total dose will be 56.25 mg will round down to 50 mg. We do not have this medication available at our hospital. = is recommended and she would like to share in handoff with the accepting physicians. 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 We had a long discussion regarding the importance of taking medications and explaining that that was the beginning of treatment. Explained to her the process to find beds and hospitals and shared with her that a do very much understand the frustration. At this point she is willing to stay while we continue to wait to hear from Dr. Lara. I told her we could treat her nausea and her anxiety and strongly recommended that she take the allopurinol and hydroxyurea and she agreed. 11!5 Dr Lara Will be going to [address], [address] [place] [address]. Accepting doc, Dr Quinones, hospitalist. Has spoken with oncologist, DR Allison. Bed no likely available in early am hours. Pt is stable enough to go home and wait for bed over the next 4-8hrs. Dr Lara will be calling the paitent and letting her know when to head down. Dr Bonilla, shift change at 6am. 1120pm reviewed plans with patient. She actually is quite pleased with the idea being able to go home for couple of hours. We will leave her right forearm IV in place and taped it securely. She is given the entire packet of information that would go with her if she were going the ambulance. Encouraged her to return to an ER if she feels that symptoms are worse before she gets to her admission bed later this morning. 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 Thank you also for being patient in helping us find the best space for us to continue to treat your acute leukemia. You are going to be admitted to [facility] in [place]. You can put that into online maps for best directions The bed is not available to the early hours of this morning. As you are relatively clinically stable right now, we are going to have you go home to allow you to get some sleep. You will be getting a phone call from either Dr. Lara or Dr. Bonilla, the [place] physicians. They will let you know that the bed is available and help with any additional questions that you have. We have left your IV in place please keep the dressing on Please give the entire packet of information that we have provided you to the admitting personnel when you get to [facility]. It has all of the information from today's visit in it. I wish you the very best Prescriptions: No Action gabapentin 300 mg capsule 300 mg PO BEDTIME Qty: 30 RF: 1 Hold Instructions: not working meloxicam 7.5 mg tablet 7.5 mg PO DAILY Qty: 30 RF: 0 levothyroxine 175 mcg capsule 175 mcg PO DAILY Qty: 30 RF: 0 pregabalin [Lyrica] 100 mg capsule 100 mg PO BEDTIME Qty: 30 RF: 1 ondansetron 4 mg tablet,disintegrating 4 mg PO Q6H PRN (Reason: nausea and vomiting) Qty: 20 RF: 0 Referrals: Dk Barger MD [Primary Care Provider] -
[2020-06-25 16:06] LABS: Alanine Aminotransferase 62 IU/L (<35); Albumin 3.8 g/dL (3.5-5.0); Albumin Globulin Ratio 1.2 (1.0-2.8); Alkaline Phosphatase 98 U/L (38-126); Aspartate Aminotransferase 68 IU/L (14-36); BUN Creatinine Ratio 7.4 (6-22); Bilirubin Total 0.4 mg/dL (0.2-1.3); Blood Urea Nitrogen 6 mg/dL (7-17); Calcium 8.7 mg/dL (8.4-10.2); Carbon Dioxide 23 mmol/L (22-32); Chloride 105 mmol/L (98-107); Estimated Glomerular Filt Rate > 60.0 mL/min (>60); Globulin 3.2 g/dL (1.7-4.1); Glucose 111 mg/dL (70-100); HEMOLYSIS < 15 (0-50); Lipase 44 U/L (23-300); Potassium 3.3 mmol/L (3.4-5.1); Sodium 135 mmol/L (137-145)
[2020-06-25 16:08] LABS: INR 1.4 (0.9-1.3)
[2020-06-25 16:10] LABS: Hematocrit 21.8 % (36-46); Hemoglobin 7.2 g/dL (12.0-16.0); Mean Corpuscular HGB Conc 32.9 % (30-36); Mean Corpuscular Hemoglobin 34.3 PG (26-34); Mean Corpuscular Volume 104.1 fL (80-100); PTT Partial Thromboplastin Tim 32 SECONDS (26.4-36.2); Platelet Count 60 X10^3/uL (150-400)
[2020-06-25 16:17] LABS: Add Manual Diff / Slide Review YES
[2020-06-25 16:26] LABS: Creatine Kinase 54 U/L (30-135)
--- NOTE | 2020-06-25 16:28 | PC.NURSE ---
Critical result WBC 79, notified Briseida in person.
[2020-06-25 16:39] LABS: NT-proBNP (BNP-Adult 18+) 376 pg/mL (<125); Troponin I < 0.012 ng/mL (0.01-0.034)
[2020-06-25] MEDS: MORPHINE 2 MG/ML INJ IV (16:54)
[2020-06-25 16:56] LABS: COVID19 -Nasal RAPID Negative (Negative)
[2020-06-25 16:58] LABS: D Dimer 8178 ng/mL (<230)
[2020-06-25] MEDS: PANTOPRAZOLE 40 MG VIAL IV (17:01)
--- NOTE | 2020-06-25 17:03 | DI.CT.S_ITS ---
PROCEDURE: CT ANGIO CHEST PE PROTOCOL INDICATIONS: sob very high dimer TECHNIQUE: After the administration of intravenous contrast, 2 mm thick sections acquired from the pulmonary apices to the posterior costophrenic angles. 3-dimensional maximum intensity projection (MIP) coronal and sagittal reformats were then acquired through the thorax. For radiation dose reduction, the following was used: automated exposure control, adjustment of mA and/or kV according to patient size. COMPARISON: [facility], CR, XR CHEST 1V, 06/25/2020, 15:57. [facility], CT, CT ABDOMEN PELVIS W CON, 06/25/2020, 17:06. FINDINGS: Image quality: Fair. Pulmonary arteries: Pulmonary arteries are normal in size, and demonstrate no intraluminal filling defects to suggest central pulmonary embolism. Lungs and pleura: Right middle lobe pulmonary nodule measuring 1 x 0.8 cm, (5/131). Bilateral a patchy ground-glass opacity, [id number] severity. No pleural effusions or pneumothorax. Central and peripheral airways are patent. Mediastinum: Heart size is normal, without pericardial effusion. No mediastinal or hilar adenopathy. Nodes are shotty in appearance. Favor reactive etiology. Thoracic aorta is normal in caliber and enhancement. Esophagus is normal in caliber, without hiatal hernia. Bones and chest wall: No suspicious bony lesions. Ribs and thoracic spine appear intact throughout. Thyroid gland is unremarkable. No axillary or supraclavicular adenopathy. Abdomen: Visualized upper abdominal solid organs appear normal in the early arterial phase of enhancement. IMPRESSION: 1. No central pulmonary embolism. 2. Bilateral patchy ground-glass opacity. Findings most compatible with infectious/inflammatory etiology. COVID-19 could have this appearance. 3. Right middle lobe pulmonary nodule measuring up to 1 cm. -This could be further evaluated with PET/CT after resolution of acute inflammation/infectious process. -A short-term follow-up CT chest is also recommended to demonstrate stability. Dictated by: Temo Talbot M.D. on 06/25/2020 at 17:36 Approved by: Temo Talbot M.D. on 06/25/2020 at 17:45
--- NOTE | 2020-06-25 17:03 | DI.CT.S_ITS ---
PROCEDURE: CT ABDOMEN PELVIS W CON INDICATIONS: ab pain nausea very high wbc TECHNIQUE: After the administration of oral and intravenous contrast, 5 mm thick sections acquired from the diaphragms to the symphysis. 5 mm thick coronal and sagittal reformats were performed. For radiation dose reduction, the following was used: automated exposure control, adjustment of mA and/or kV according to patient size. COMPARISON: [facility], CT, CT ANGIO CHEST PE PROTOCOL, 06/25/2020, 17:06. FINDINGS: Image quality: Excellent. ABDOMEN: Lung bases: Please see separately dictated same day CT pulmonary angiogram. No pleural effusion. Patchy airspace opacity at the lung bases seen. Solid organs: Liver is normal in size and enhancement. Gallbladder is prominent size. Small layering calcified gallstones are seen. No pericholecystic fluid. Biliary system is non-dilated. Pancreas enhances normally. Spleen is enlarged measuring approximately 16.3 cm in craniocaudal dimension, (). Trace stranding near the spleen. No adrenal nodules. Kidneys are normal in size and enhancement, without hydronephrosis. Peritoneum and bowel: Stomach, small bowel, and colon loops are normal in caliber and wall thickness. A few colonic diverticuli. Normal appendix. No free fluid or air. Nodes and vessels: No retroperitoneal or mesenteric adenopathy. Aorta and inferior vena cava are normal in caliber. Miscellaneous: Small fat containing periumbilical hernia. PELVIS: Genitourinary: Bladder is decompressed. Left ovarian cyst measuring 2 cm. Small volume of free fluid in the pelvis. IUD centered in the uterus. Anteverted uterus. Miscellaneous: No inguinal hernias or adenopathy. Bones: No suspicious bony lesions. No vertebral body compression fractures. IMPRESSION: 1. Splenomegaly. Trace stranding near the spleen. This could be seen in infectious/inflammatory etiology. Neoplastic process as a source of splenomegaly and leukocytosis could have a similar appearance. 2. Small volume of free fluid in the pelvis. This could be within physiologic limits in this female patient. 3. Cholelithiasis. -If concern for acute cholecystitis consider gallbladder ultrasound. 4. Small left ovarian cyst. Dictated by: Temo Talbot M.D. on 06/25/2020 at 17:45 Approved by: Temo Talbot M.D. on 06/25/2020 at 17:53
[2020-06-25 17:30] LABS: Neutrophils Absolute Manual 11060 /uL (3000-5900); Total Cells Counted 100
[2020-06-25 17:33] LABS: Nucleated Red Blood Cells 4 #/Diff
[2020-06-25 17:37] LABS: Anisocytosis 2+; Auer Rods RARE
[2020-06-25 17:47] LABS: Macrocytosis 1+
[2020-06-25] MEDS: METOCLOPRAMIDE 10 MG/2 ML INJ IV (19:16)
[2020-06-25 19:25] LABS: Uric Acid 6.8 mg/dL (2.5-6.2)
[2020-06-25 19:33] LABS: Lactate Dehydrogenase 4053 U/L (313-618)
[2020-06-25 19:37] LABS: Phosphorous 1.2 mg/dL (2.5-4.5)
[2020-06-25] MEDS: PROCHLORPERAZINE 10 MG/2 ML VIAL IV (19:45)
[2020-06-25 19:47] LABS: Fibrinogen 162 mg/dL (211-428)
[2020-06-25] MEDS: PROCHLORPERAZINE 10 MG/2 ML VIAL 5 MG IV (22:20)
[2020-06-25] MEDS: LORazepam 2 MG/ML INJ 1 MG IV (22:20)
[2020-06-25] MEDS: HYDROXYUREA 500 MG CAPSULE 3000 MG PO (22:42)
[2020-06-25] MEDS: allopurinoL 300 MG TABLET PO (22:42)
== END 2020-06-25 23:35 | disposition short-term general hospital (02) ==
PROVIDERS: Emergency Medicine; Emergency Provider Emergency Medicine; PCP Family Medicine
DX: C95.00 Acute leukemia of unspecified cell type not having achieved remission (principal); R06.02 Shortness of breath; R11.2 Nausea with vomiting, unspecified; R19.7 Diarrhea, unspecified; R06.01 Orthopnea; R10.9 Unspecified abdominal pain; Z20.822 Contact with and (suspected) exposure to COVID-19
CPT/HCPCS: 36415; 71045; 71275; 74177; 80053; 81003; 81025; 82550; 83615; 83690; 83880; 84100; 84484; 84550; 85007; 85025; 85379; 85384; 85610; 85730; 87635; 93005; 93010; 96361; 96374; 96375; 96376; 99284; 99285; C9803; C9113; J0780; J2060; J2270; J2405; J2765; Q9967